=== PATIENT | female | born 1955 | race Caucasian/White ===

== ENCOUNTER 2017-11-30 05:47 | Inpatient (IN) | payer OTHER, SELFPAY ==
[2017-11-18 10:41] VITALS: BMI 33.7
[2017-11-30] VITALS (17 sets, daily range): BP systolic 96–138; BP diastolic 58–77; PULSE 73–92; RESP 13–20; TEMP 36.3–36.8; O2SAT 96–100; BMI 33.7
[2017-11-30] MEDS: ACETAMINOPHEN 325 MG TABLET 975 MG PO ×2 (07:12→21:45)
[2017-11-30] MEDS: CELECOXIB 200 MG CAPSULE PO (07:13)
[2017-11-30] MEDS: LACTATED RINGERS 1,000 ML 42 ML IV ×2 (07:15→10:27)
[2017-11-30] MEDS: VANCOMYCIN 1,000 MG/200 ML FROZ.PIGGY 200 MG IV ×2 (07:20→18:21)
--- NOTE | 2017-11-30 07:35 | SUR.PREOP ---
Block start time [0745] . Monitoring initiated and maintained throughout procedure. Oxygen and medications given per anesthesiologist instructions. Patient remained stable throughout procedure, no adverse reactions noted. Block end time [].0756
--- NOTE | 2017-11-30 07:41 | PM.PREOP ---
Pre-operative Note Interval Note Pre-op Check: Yes History & Physical Reviewed by Physician and Yes Exam Performed Changes: No
--- NOTE | 2017-11-30 08:32 | SUR.OPER ---
Supine on padded OR bed. Pillow under head, arms secured on padded armboards <90 degree abduction. Safety belt across torso. Non-operative leg secured with tape over blanket over lower leg. Operative leg secured in DeMayo/Edward positioner. Foam padded brace at thigh of operative leg.
[2017-11-30] MEDS: BUPIVACAINE 0.25% W/ EPI VIAL 50 ML INJ (08:50)
[2017-11-30] MEDS: BUPIVACAINE LIPOSOME 266 MG/20 ML VIAL INJ (08:50)
[2017-11-30] MEDS: TRANEXAMIC ACID 1,000 MG VIAL 1000 MG INJ ×2 (08:54→09:44)
--- NOTE | 2017-11-30 09:35 | PM.PROC.1 ---
Procedures Date/Time Date of procedure: 11/30/17 Time of procedure: 07:50 Nerve Block Time out performed: Yes Local anesthetic used: other (15mL 0.5pivacaine, 5mL 2 idocaine) Location of anesthetic used: Adductor canal Amount of anesthesia used (mL): 20 Nerve blocks: femoral (adductor canal) Procedure successful: Yes Patient tolerated procedure: well Complications: none Additional comments: Risks and benefits discussed, including bleeding, infection, intravascular injection, nerve damage, block failure. Standard ASA monitors, NC O2. Pt supine. Chloroprep site preparation, sterile technique. Adductor canal identified with US guidance, medial mid LEFT thigh. 1mL 2% lidocaine skin wheal. 21g x 100mm Pajunk advanced with in-plane US guidance to adductor canal. Negative aspiration. LA injected with intermittent negative aspiration. Good LA spread noted on US. No pain, no paraesthesia. Pt tolerated procedure well. Vital signs stable.
--- NOTE | 2017-11-30 09:38 | P.PCN_ITS ---
Procedures Date/Time Date of procedure: 11/30/17 Time of procedure: 07:50 Nerve Block Time out performed: Yes Local anesthetic used: other (15mL 0.5 opivacaine, 5mL 2* idocaine) Location of anesthetic used: Adductor canal Amount of anesthesia used (mL): 20 Nerve blocks: femoral (adductor canal) Procedure successful: Yes Patient tolerated procedure: well Complications: none Additional comments: Risks and benefits discussed, including bleeding, infection , intravascular injection, nerve damage, block failure. Standard ASA monitors, NC O2. Pt supine. Chloroprep site preparation, sterile technique. Adductor canal identified with US guidance, medial mid LEFT thigh. 1mL 2% lidocaine skin wheal. 21g x 100mm Pajunk advanced with in-plane US guidance to adductor canal. Negative aspiration. LA injected with intermittent negative aspiration. Good LA spread noted on US. No pain, no paraesthesia. Pt tolerated procedure well. Vital signs stable.
--- NOTE | 2017-11-30 10:15 | DI.RAD.S_ITS ---
PROCEDURE: XR KNEE LT 1TO2V INDICATIONS: post op total left knee TECHNIQUE: 2 view(s) of the knee acquired. COMPARISON: [facility] [place], [place], XR KNEE ARTHRITIC SERIES BI, 11/04/2017, 9:36. FINDINGS: Bones: Patient is status post knee joint arthroplasty. Hardware components are in expected positions. Visualized bony structures are intact. Soft tissues: Overlying postoperative changes are noted. IMPRESSION: Acute postoperative changes revision left total knee arthroplasty Dictated by: Robin Hooks M.D. on 11/30/2017 at 10:50 Approved by: Robin Hooks M.D. on 11/30/2017 at 10:51
--- NOTE | 2017-11-30 10:16 | P.OP_ITS ---
Operative Date/Time/Diagnoses Date of procedure: 11/30/17 Time of procedure: 09:50 Pre-op diagnosis: Loose femoral component, left total knee Post-op diagnosis: same Procedure & Clinicians Procedure: Revision of femoral component, left total knee Same procedure as scheduled: Yes Indications: The patient has had progressively worsening left knee pain with radiographic changes consistent with loosening of the femoral and possibly the patellar component of her total knee. Infection work up has been negative. Non- operative management has failed and the patient has requested total knee replacement. The risks, benefits and alternatives to surgery were discussed with the patient prior to proceeding. Risks discussed included, but were not limited to, failure to relieve pain, stiffness, infection, nerve damage, deep venous thrombosis, pulmonary embolism, stroke, coma, heart attack, permanent paralysis and , as well as the potential need for eventual revision of the prosthetic. Surgeon: Vipul Bullock Computer Systems Architect: Cecilia Jha Click Yes if Unassisted: No Anesthesia Type: General, Spinal, Peripheral nerve block and Local Operative Notes Findings: Loose femoral and well-fixed patellar and tibial components. Closure Type: primary Specimen(s): other (Cultures from femoral interface.) Implants & Drains: Implants used in this procedure were manufactured by the [employer] and included a PFC Sigma revision total knee system with a size 2.5 left TC3 cemented femoral component, 2.5 mm distal augments for both the medial and lateral femoral condyles, a +2/-2 femoral adapter bolt, a 75 mm x 18 mm stem, and a 17.5 mm size 2.5 TC3 rotating platform tibial insert. A size 3 posterior stabilized Sigma femoral component was removed. Applied: implant(s) Estimated Blood Loss (mL): 50 Blood products transfused: none Tourniquet time (min): 67 Procedure in detail: The patient was seen in the pre-operative area, where the left knee was identified as the operative site and this was marked with my initials. The patient received pre-operative antibiotics, and was taken to the operating room and placed on the operative table in the supine position. After satisfactory anesthesia, a full stack software developer out was performed. The left leg was encircled with a tourniquet about the proximal thigh, and the leg was prepared from the toes to the tourniquet with ChloroPrep in the usual fashion and draped through sterile drapes. The leg was elevated and exsanguinated with Eschmark bandage and the tourniquet inflated to 250 mmHg pressure. The knee was approached through an approximately 20 cm incision in the previous scar and carried into the knee through a medial parapatellar arthrotomy. The tibial rotating platform insert was removed to allow more access to the femoral component. Revision cement removal osteotomes were used to break down the interface between the prosthetic and the underlying bone. The prosthetic was relatively easily removed with minimal residual bone on the prosthetic. Cultures were taken and the membrane from behind the prosthetic sent as well for culture. The rotational landmarks of the transepicondylar axis was marked on the femur with electrocautery, and it appeared as though the previous prosthetic had been appropriately rotated. The intramedullary canal was entered with a drill and then reamed increasingly until cortical bite was obtained with an 18 mm reamer. The distal femoral cut was made in 5 degrees of valgus using the intramedullary guide at the +4 setting, which accomplished a skim cut on the femur. The femoral cutting guide was then applied in appropriate rotation. Initially we tried the size 3, this however was significantly oversized and upon review of the radiographs appeared to have been oversized even with the initial procedure. We then downsized to a 2.5 mm guide and moved it 2 mm posteriorly. This accomplished both a skim cut on the anterior and posterior femur without the need for augmentation. In part I did this to improve the patient's flexion, this has been limited preoperatively. The anterior, posterior and chamfer cuts were then made. The intercondylar notch cut was enlarged to accommodate the TC3 prosthesis. The flexion gap was checked and the rotation of the femoral component confirmed with the gap balancing blocks before completing the femoral cuts. The trial femur was then assembled with the 4 mm distal augments and the appropriate 75 mm x 18 mm stem. This was inserted and with a 17.5 mm TC3 rotating platform insert we had full extension and flexion to 110? (improved from 90? preoperatively). This was felt to be satisfactory. The trials were then removed. The posterior capsule was injected with part of a mixture of 50 ml 0.25% Marcaine mixed with 20 ml Exparel and 4 mg of morphine for post-operative pain control. The remainder of this mixture was injected into the capsule and subcutaneous tissues during cement curing. I then inspected the patella very carefully and it did not appear to be loose from the underlying bone. The bone was prepared with pulsatile lavage, and dried with a sponge. Cement was applied and the final prosthetics placed. Excess cement was removed during and after cement curing. After confirming there was no extruded cement posteriorly, the final tibial insert was placed. The knee was copiously irrigated and the tourniquet deflated. Hemostasis was obtained. The capsule was closed with interrupted # 2 polyester sutures. The subcutaneous layer was closed with 3-0 Vicryl, and the skin with a running 3-0 V-Lock suture and SteriStrips. An Aquacel Ag dressing was applied and the patient was taken to recovery having tolerated the procedure well. Complications: none Condition: stable Disposition: PACU Plan for aftercare: The patient will be maintained on a standard total knee replacement protocol with weight bearing as tolerated. The patient will receive aspirin and sequential compression devices for DVT prophylaxis. The patient will be discharged home when safe for the home environment.
[2017-11-30] MEDS: fentaNYL 100 MCG/2 ML INJ 50 MCG IV ×2 (10:20→10:30)
--- NOTE | 2017-11-30 10:30 | SUR.PHASEI ---
pt medicated for c/o pain in left knee, pt able to wiggle toes freely, 2+ palpable pedal pulse on left, x rays taken, pt tolerating ice chips
--- NOTE | 2017-11-30 10:43 | SUR.PHASEI ---
REPORT GIVEN TO STEVO ALEX PT TOLERATING SIPS OF JUICE
--- NOTE | 2017-11-30 11:07 | PC.NURSE ---
Admission Pt arrived from PACU @ 1055, A/O x3, rates pain to L thigh/knee 8+/10 discussed recent dosing of PACU pain control. Pt verbalizes understanding of POC for pain control. Oriented to room and call light. Snack provided. in room, Pt is able to doze off during assessment. SCDs in place.
[2017-11-30] MEDS: LACTATED RINGERS 1,000 ML 100 ML IV (11:34)
[2017-11-30] MEDS: hydrOXYzine pamoate 25 MG CAPSULE PO ×2 (11:43→18:26)
[2017-11-30] MEDS: OXYCODONE IR 5 MG TABLET 10 MG PO ×4 (11:44→21:47)
[2017-11-30] MEDS: MEPERIDINE 25 MG/ML SYRINGE IV (12:42)
--- NOTE | 2017-11-30 15:40 | PT.IIE ---
Current Diagnoses Bilateral primary osteoarthritis of knee (11/30/17) Surgery Performed Operation Date: 11/30/17 07:45 Actual Procedures p Total Knee Arthroplasty Revision(Left) - Vipul Bullock MD Surgical History (Last Updated 11/18/17 @ 11:00 by Brittanie Montano, RN) History of arthroplasty of left knee (Acute) History of cholecystectomy (Acute) History of gastric bypass (Acute) History of total abdominal hysterectomy and bilateral salpingo-oophorectomy (Acute) Hx of appendectomy (Acute) Hx of section (Acute) Medical History (Last Updated 11/20/17 @ 12:22 by Brittanie Montano RN) ADHD (Acute) Anxiety (Acute) Bipolar 1 disorder (Acute) Chronic gastritis (Acute) Depression (Acute) Easy bruisability (Acute) GERD (gastroesophageal reflux disease) (Acute) Generalized headaches (Acute) Left wrist fracture (Acute) Neck pain (Acute) Neurology follow-up encounter (Acute) PTSD (post-traumatic stress disorder) (Acute) Peripheral edema (Acute) Rhinosinusitis (Acute) Seasonal allergies (Acute) Seizure-like activity (Acute) Skin cancer (Acute) Physical Therapy Inpatient Evaluation/Re-Eval M1 PT/OT-IP Prior Functional Status Start: 11/30/17 14:26 Freq: NEEDED Status: Active Protocol: Document 11/30/17 15:40 RS (Rec: 12/01/17 07:54 RS [id number]) Medical Review Prior Functional Status Medical History Reviewed Yes Communication no known deficits Mobility and Gait ind to mod ind w/ walker Social History Household Members spouse children Living Arrangements House Number of Floors (Floors) One Floor Number of Stairs To Enter/Railing? no stairs, w/c ramp in place Home Equipment Front Wheel Walker Additional Social History Comment pt's granddaughter and disabled dtr are currently living with them. M2 PT-IP Current Condition Start: 11/30/17 14:26 Freq: NEEDED Status: Active Protocol: Document 11/30/17 15:40 RS (Rec: 12/01/17 07:54 RS [id number]) Physical Therapy Current Condition Current Condition Evaluation Date 11/30/17 Treatment Diagnosis L TKA 2nd revision Weight Bearing Status Weight Bearing Status Weight Bear as Tolerated M3 PT-IP Subjective Start: 11/30/17 14:26 Freq: NEEDED Status: Active Protocol: Document 11/30/17 15:40 RS (Rec: 12/01/17 07:54 RS [id number]) Subjective Physical Therapy Visit Type Type Initial Evaluation Visit Start Time 14:40 Visit Stop Time 15:40 Total Visit Minutes 60 Physical Therapy Visit Comments Patient Comments Pt reports more pain this time than the previous two surgeries. This is her 2nd revision. Short Term Goals go home Therapy Pain Assessment Pain When Pain Assessed During Mobility Pain Present Pain Present Pain Reported Location Left Knee Intensity 9 Scale Used Numeric (1 - 10) Description Sharp Stabbing Throbbing With Movement Pain Behaviors Facial Grimacing Guarding Pain Management Techniques Apply Cold Distraction Modification of Treatment Re-positioning Timing of Activity with Medications M4 PT-IP Mobility and Gait Start: 11/30/17 14:26 Freq: NEEDED Status: Active Protocol: Document 11/30/17 15:40 RS (Rec: 12/01/17 07:54 RS [id number]) PT-Bed Mobility Assessment Rolling Level of Assist Minimal Assistance Supine to Sit Supine to Sit Minimal Assistance Sit to Supine Sit to Supine Minimal Assistance Scooting Scooting to Edge of Bed Contact Guard Assistance PT-Transfer Assessment Sit to and From Stand Sit to and from Stand Contact Guard Assistance Equipment Transfer Assistive Device Gait Belt Front Wheeled Walker Comments Mobility Comments Pt was not able to tolerate getting up to the chair as she got dizzy after standing a few moments at EOB. Pt was able to perform marching before needing to sit down and was very stable. Once pt is not dizzy she will be safe to perform stand-pivot transfer with nursing staff w/ FWW, gait belt, and CGA. Gait Assessment Comments Gait Comments Pt was able to take a few side steps but typical walking has not been trialled yet as pt became dizzy in standing. PT-Balance Assessment Sitting Balance and Reactions Static Sitting Balance Ability Normal Dynamic Sitting Balance Ability Good Standing Balance and Reactions Static Standing Balance Ability Good Dynamic Standing Balance Ability Fair Device Used FWW M5 PT-IP Objective Assessments Start: 11/30/17 14:26 Freq: NEEDED Status: Active Protocol: Document 11/30/17 15:40 RS (Rec: 12/01/17 07:54 RS [id number]) Orientation Orientation/Cognition Level of Alertness Alert Orientation Name Age Birthday Month Date Year Day of Week Place Situation Language Function Ability No Deficits Noted Safety Awareness Understands Safety Issues Memory Description No Deficits Noted Gross Range of Motion Upper Extremity ROM Assessment Within Functional Limits Lower Extremity ROM Impairments BLE WFL except L knee 10-50 Strength Upper Extremity Strength Assessment Within Functional Limits Comments Strength Comments not formally tested, pt able to stand with walker with only CGA M6 PT-IP Treatment Start: 11/30/17 14:26 Freq: NEEDED Status: Active Protocol: Document 11/30/17 15:40 RS (Rec: 12/01/17 07:54 RS [id number]) Physical Therapy Treatment Exercises Exercises Ankle Pumps Gluteal Sets Quad Sets Heel Slides Short Arc Quads Passive Knee Extension Hang Education Education Provided Precautions Weight Bearing Status Post-Op Packet Safety M7 PT-IP Assessment and Plan Start: 11/30/17 14:26 Freq: NEEDED Status: Active Protocol: Document 11/30/17 15:40 RS (Rec: 12/01/17 07:54 RS [id number]) PT Summary Assessment and Plan Potential Rehabilitation Potential Good Status of Condition at Evaluation Stable Summary Impairments Pain ROM Strength Bed Mobility Transfers Gait Activity Tolerance Progress Towards Goals Progressing Toward Goals Assessment Summary Pt is POD#0 for a 2nd L TKA revision. Pt describes high levels of pain but is able to tolerate basic mobility with CGA<>min A. Anticipate that with continued acute PT, general mobilization with nursing, and ongoing pain management that pt will be safe to discharge home with intermittent assist in 2-3 days. It is unlikely that formalized caregiver training will be needed. Patient is still well below reported functional baseline and has potential for functional improvement. Pt will benefit from ongoing skilled PT with home health. Goals Bed Mobility Goal Independent Transfer Goal Independent Front Wheeled Walker Gait Goal Independent Front Wheel Walker Gait Distance 50 Days to Meet Goals 3 Frequency of Treatment Frequency Of Treatment Twice a Day Treatment Plan Physical Therapy Treatment Plan Bed Mobility Training Transfer Training Gait Training Therapeutic Exercise Discharge Planning Other Recommendations and Next Treatment continue exercises and Focus progress to walking Recommendations To Nursing Amount of Assist Needed 1 Person Assist Discharge Recommendations PT Discharge Recommendations Home with Assistance Home Health
[2017-11-30] MEDS: AMITRIPTYLINE 25 MG TABLET 50 MG PO (21:44)
[2017-11-30] MEDS: DOCUSATE 100 MG CAPSULE PO (21:46)
[2017-11-30] MEDS: BUSPIRONE 15 MG TABLET 30 MG PO (21:46)
[2017-11-30] MEDS: MONTELUKAST 10 MG TABLET PO (21:47)
[2017-11-30] MEDS: LORazepam 0.5 MG TABLET 1 MG PO (21:47)
[2017-12-01] MEDS: LACTATED RINGERS 1,000 ML 100 ML IV (00:10)
--- NOTE | 2017-12-01 00:26 | PC.NURSE ---
Addendum entered by Muna Arroyo R.N. 12/01/17 03:56: Awakened as requested for pain medication. Although asleep when RN entered room patient states pain is currently 8/10. SCD's off for past hour and now back on. Original Note: Addendum entered by Muna Arroyo R.N. 12/01/17 02:38: States she woke from a sleep in 9/10 pain; medicated with Ibuprofen and instructed that if that doesn't reduce pain there is IV pain medication as well. Original Note: Addendum entered by Muna Arroyo R.N. 12/01/17 00:54: Medicated with Oxycodone + Vistaril for complaint of 7/10 pain as requested to be awakened for pain meds when available. Original Note: Patient is alert and oriented. Breath sounds CTA with RA sat of 95%. HRR. Denies nausea. BT hypoactive; denies flatus. Getting up to bathroom to void and denies dysuria, frequency, urgency or incontinence. Is able to turn self in bed but needs 1 assist + walker when up to bathroom. Aquacel with idris wrap over to left knee is CDI. Current pain level is 7/10 but states she can wait until next pain meds are due at 0045; ice packs applied. CMS intact. Does have chronic non-pitting bilateral LE edema. Old bruises noted on left upper arm and right wrist; states she bruises easily. Wearing bilateral SCD's. Fall risk score is high as patient reports she has had 3 falls in past 3 months because knees are shaky and give out; bed alarm is activated and patient is agreeable to same.
[2017-12-01] MEDS: OXYCODONE IR 5 MG TABLET 10 MG PO ×6 (00:49→19:52)
[2017-12-01] MEDS: hydrOXYzine pamoate 25 MG CAPSULE PO ×3 (00:49→16:20)
[2017-12-01] MEDS: IBUPROFEN 400 MG TABLET 800 MG PO (02:34)
[2017-12-01 04:08] VITALS: BP 116/61; PULSE 81; RESP 18; TEMP 36.7; O2SAT 95
[2017-12-01 06:19] LABS: Hematocrit 30.3 % (36-46); Hemoglobin 9.4 g/dL (12.0-16.0)
[2017-12-01 07:45] VITALS: BP 113/58; PULSE 91; RESP 18; TEMP 36.7; O2SAT 96
--- NOTE | 2017-12-01 07:45 | PM.PNPO.1 ---
Subjective Date Patient Seen: 12/01/17 Time Patient Seen: 07:45 Interval history: The patient reports good pain control overnight. She was briefly seen by PT yesterday, but did not get out of bed. Exam Vital Signs (past 8 hours): - 12/01/17 04:08 Temperature 98.1 F Pulse Rate 81 Respiratory Rate 18 Blood Pressure 116/61 Pulse Oximetry 95 Oxygen Delivery Method Room Air Oxygen Flow Rate 0 Narrative Exam Narrative: Left knee wound is dressed with no drainage on the bandage. Calf is soft. Light touch and motion are intact in the left lower extremity. Objective Labs Result Diagrams: 12/01/17 05:30 Labs: Laboratory Results - last 24 hr 12/01/17 05:30 Hgb 9.4 L Hct 30.3 L Assessment & Plan Post-op Postoperative Procedures Operation Date: 11/30/17 07:45 Actual Procedures Side Surgeon p Total Knee Arthroplasty Revision Left Vipul Bullock MD Postoperative day: 1 Postoperative status: doing well and anemia (The patient had a mild preoperative anemia which is slightly worse postoperatively. Her hemoglobin and hematocrit do not require rechecking as they are satisfactory.) Postoperative plan: routine post-op care, ambulate (The patient will be seen by physical therapy today. Depending on the progress she will be discharged home with either outpatient or home physical therapy.) and discharge (Discharge as possible tomorrow if she makes enough progress with physical therapy. If not, I would anticipate she will be discharged on .) Time Spent With Patient less than 15 minutes Quality VTE Deep Vein Thrombosis/Pulmonary Embolism Present on Admission: No
[2017-12-01] MEDS: ASPIRIN EC 81 MG TABLET PO ×2 (08:05→20:00)
[2017-12-01] MEDS: lamoTRIgine 100 MG TABLET 200 MG PO (08:05)
[2017-12-01] MEDS: BUSPIRONE 15 MG TABLET 30 MG PO ×2 (08:05→20:00)
[2017-12-01] MEDS: ACETAMINOPHEN 325 MG TABLET 975 MG PO ×3 (08:05→20:00)
[2017-12-01] MEDS: DOCUSATE 100 MG CAPSULE PO ×2 (08:06→20:00)
[2017-12-01] MEDS: lamoTRIgine 25 MG CHEW TABLET 75 MG PO (08:06)
[2017-12-01] MEDS: ESTRADIOL 0.5 MG TABLET PO (08:06)
[2017-12-01] MEDS: ONDANSETRON 4 MG ODT PO (08:51)
--- NOTE | 2017-12-01 10:04 | CM.DANOTE ---
DCP/Assessment: Reviewed chart. Patient is a 62yr old female [facility] knee revision performed on 11-30-[address] Bullock. Primary payor is 1)[facility]. PCP is Dr. Freeman. Met with patient and spouse/Jakob at bedside explained CM/SW role. PT in room at time of visit. Current recommendation is home with home health for PT/OT. Patient reports that she is agreeable to and first agency choice is [facility] . Patient and spouse report that patient has all needed DME at home. Patient also reports that [facility] already coming to patient's home for patient's daughter. UNIT SECY placed call to [facility] spoke with Penelope. She confirms that they can accept referral and would like clinical faxed to [phone]. UNIT SECY will request TONEY/Radha fax. P: Anticipate d/c home on Thursday12-01-17 with [facility] . PILLO Gilliam Discharge Planning/Care Management CM Discharge Assessment Start: 12/01/17 09:43 Freq: Status: Active Protocol: Document 12/01/17 09:43 KJS (Rec: 12/01/17 10:03 KJS [id number]) Discharge Planning Assessment Assigned Floriculture Teacher PILLO/Monserrat History Provided By Patient Significant Other Has Patient been admitted in last 30 No days? Prior Living Arrangements House Household Members spouse children Type of transporation used prior to Relies on Others admit Independent with ADL's Yes Is patient alert and oriented? Yes Caregiver for Another No DME Already Rented / Owned Hospital Bed Elevated Toilet Seat FWW / Walker Discharge Plan Home with Home Health If patient plan is home with home health Yes : Has signed face to face form been completed? Review Status In Process Next Review Type Continued Stay Review
--- NOTE | 2017-12-01 10:13 | PT.IPTN ---
Current Diagnoses Bilateral primary osteoarthritis of knee (11/30/17) Surgery Performed Operation Date: 11/30/17 07:45 Actual Procedures p Total Knee Arthroplasty Revision(Left) - Vipul Bullock MD Physical Therapy Treatment Note M2 PT-IP Current Condition Start: 11/30/17 14:26 Freq: NEEDED Status: Active Protocol: Document 11/30/17 15:40 RS (Rec: 12/01/17 07:54 RS [id number]) Physical Therapy Current Condition Current Condition Evaluation Date 11/30/17 Treatment Diagnosis L TKA 2nd revision Weight Bearing Status Weight Bearing Status Weight Bear as Tolerated M3 PT-IP Subjective Start: 11/30/17 14:26 Freq: NEEDED Status: Active Protocol: Document 12/01/17 09:52 RS (Rec: 12/01/17 10:13 RS [email or web address]) Subjective Physical Therapy Visit Type Type Treatment Note Visit Start Time 09:04 Visit Stop Time 09:30 Total Visit Minutes 26 Physical Therapy Visit Comments Patient Comments Pt reports sleeping well, feels like she'll be ready to go home tomorrow. Therapy Pain Assessment Pain When Pain Assessed During Mobility Pain Present Pain Present Pain Reported Location Left Knee Intensity 4 M4 PT-IP Mobility and Gait Start: 11/30/17 14:26 Freq: NEEDED Status: Active Protocol: Document 12/01/17 09:52 RS (Rec: 12/01/17 10:13 RS [email or web address]) PT-Bed Mobility Assessment Supine to Sit Supine to Sit Standby Assistance Head of Bed Elevated Bedrails Sit to Supine Sit to Supine Standby Assistance Head of Bed Elevated Bedrails Scooting Scooting to Edge of Bed Standby Assistance PT-Transfer Assessment Sit to and From Stand Sit to and from Stand Standby Assistance Use of Upper Extremities Equipment Transfer Assistive Device Gait Belt Front Wheeled Walker Transfers Transfer Destination Chair Transfer Technique Stand Step Pivot Transfer Ability Level of Assist Standby Assistance Use of Upper Extremities Comments Mobility Comments Pt without any dizziness today , able to complete all transfers and bed mobility with only SBA. Pt used a gait belt as a leg computer education professor for bed mobility and it worked really well. Pt needed help to place the belt around her foot, so we need to experiment with how to create a leg computer education professor that doesn't require additional assist to get it placed. Gait Assessment Gait Gait Assistance Required: Standby Assistance Distance (Feet) (feet) 50 Assistive Devices Assistive Device Gait Belt Front Wheeled Walker Gait Deviations General Gait Pattern Antalgic Decreased Stride Length Decreased Feet Clearance Flexed Trunk Step-to Gait Factors Limiting Gait Function Factors Limiting Gait Function Decreased Activity Tolerance Decreased Strength Limited Range of Motion Pain Comments Gait Comments Pt with significant limp when trying to take a step with the RLE, did better when cued to perform a glute squeeze when in LLE single leg stance. Pt cued for longer R step to make stepping pattern more symmetrical, this improved t/o the session but pt still with a short R step. PT-Balance Assessment Sitting Balance and Reactions Static Sitting Balance Ability Normal Dynamic Sitting Balance Ability Good Standing Balance and Reactions Static Standing Balance Ability Good Dynamic Standing Balance Ability Fair Device Used FWW M5 PT-IP Objective Assessments Start: 11/30/17 14:26 Freq: NEEDED Status: Active Protocol: Document 11/30/17 15:40 RS (Rec: 12/01/17 07:54 RS [id number]) Orientation Orientation/Cognition Level of Alertness Alert Orientation Name Age Birthday Month Date Year Day of Week Place Situation Language Function Ability No Deficits Noted Safety Awareness Understands Safety Issues Memory Description No Deficits Noted Gross Range of Motion Upper Extremity ROM Assessment Within Functional Limits Lower Extremity ROM Impairments BLE WFL except L knee 10-50 Strength Upper Extremity Strength Assessment Within Functional Limits Comments Strength Comments not formally tested, pt able to stand with walker with only CGA M6 PT-IP Treatment Start: 11/30/17 14:26 Freq: NEEDED Status: Active Protocol: Document 11/30/17 15:40 RS (Rec: 12/01/17 07:54 RS [id number]) Physical Therapy Treatment Exercises Exercises Ankle Pumps Gluteal Sets Quad Sets Heel Slides Short Arc Quads Passive Knee Extension Hang Education Education Provided Precautions Weight Bearing Status Post-Op Packet Safety M7 PT-IP Assessment and Plan Start: 11/30/17 14:26 Freq: NEEDED Status: Active Protocol: Document 12/01/17 09:52 RS (Rec: 12/01/17 10:13 RS [email or web address]) PT Summary Assessment and Plan Potential Rehabilitation Potential Good Status of Condition at Evaluation Stable Summary Impairments Pain ROM Strength Bed Mobility Transfers Gait Activity Tolerance Progress Towards Goals Progressing Toward Goals Assessment Summary Pt is POD#1 L TKA revision. Pt is making slow and steady progress, now able to mobilize mostly with SBA. Pt is still below reported functional baseline and still has potential for further functional improvement. Anticipate that with continued acute PT, general mobilization with nursing, and ongoing pain management that pt will be safe to discharge home with intermittent assist tomorrow. It is unlikely that formalized caregiver training will be needed. Pt will benefit from ongoing skilled PT with home health. Pt will need HHPT as pt won't be able to perform community mobility yet. Goals Bed Mobility Goal Independent Transfer Goal Independent Front Wheeled Walker Gait Goal Independent Front Wheel Walker Gait Distance 50 Days to Meet Goals 2 Frequency of Treatment Frequency Of Treatment Twice a Day Treatment Plan Physical Therapy Treatment Plan Bed Mobility Training Transfer Training Gait Training Therapeutic Exercise Discharge Planning Other Recommendations and Next Treatment continue exercises and Focus progress to walking Recommendations To Nursing Amount of Assist Needed 1 Person Assist Discharge Recommendations PT Discharge Recommendations Home with Assistance Home Health
[2017-12-01] MEDS: DEXTROAMPHETAMINE AMPHETAMINE 10 MG 20 EACH PO (11:27)
[2017-12-01 15:10] VITALS: BP 122/63; PULSE 82; RESP 17; TEMP 36.9; O2SAT 97
[2017-12-01] MEDS: DEXTROAMPHETAMINE AMPHETAMINE 10 EACH PO (16:20)
[2017-12-01] MEDS: MONTELUKAST 10 MG TABLET PO (20:00)
[2017-12-01] MEDS: AMITRIPTYLINE 25 MG TABLET 50 MG PO (20:00)
[2017-12-01] MEDS: LORazepam 0.5 MG TABLET 1 MG PO (20:00)
[2017-12-01 23:40] VITALS: BP 100/79; PULSE 97; RESP 16; TEMP 37.1; O2SAT 93
[2017-12-02] MEDS: hydrOXYzine pamoate 25 MG CAPSULE PO ×3 (00:33→20:36)
[2017-12-02] MEDS: OXYCODONE IR 5 MG TABLET 10 MG PO ×3 (00:34→06:53)
[2017-12-02 07:45] VITALS: BP 128/73; PULSE 99; RESP 20; TEMP 36.9; O2SAT 97
[2017-12-02] MEDS: ESTRADIOL 0.5 MG TABLET PO (08:33)
[2017-12-02] MEDS: DOCUSATE 100 MG CAPSULE PO ×2 (08:33→20:32)
[2017-12-02] MEDS: ASPIRIN EC 81 MG TABLET PO ×2 (08:34→20:34)
[2017-12-02] MEDS: lamoTRIgine 100 MG TABLET 200 MG PO (08:34)
[2017-12-02] MEDS: lamoTRIgine 25 MG CHEW TABLET 75 MG PO (08:34)
[2017-12-02] MEDS: ACETAMINOPHEN 325 MG TABLET 975 MG PO ×2 (08:34→16:38)
[2017-12-02] MEDS: BUSPIRONE 15 MG TABLET 30 MG PO ×2 (08:34→20:34)
[2017-12-02] MEDS: POLYETHYLENE GLYCOL 3350 17 GM POWD.PACK PO (08:35)
[2017-12-02] MEDS: OXYCODONE IR 5 MG TABLET 15 MG PO ×4 (10:05→20:43)
--- NOTE | 2017-12-02 11:40 | PT.IPTN ---
Current Diagnoses Bilateral primary osteoarthritis of knee (11/30/17) Surgery Performed Operation Date: 11/30/17 07:45 Actual Procedures p Total Knee Arthroplasty Revision(Left) - Vipul Bullock MD Physical Therapy Treatment Note M2 PT-IP Current Condition Start: 11/30/17 14:26 Freq: NEEDED Status: Active Protocol: Document 11/30/17 15:40 RS (Rec: 12/01/17 07:54 RS [id number]) Physical Therapy Current Condition Current Condition Evaluation Date 11/30/17 Treatment Diagnosis L TKA 2nd revision Weight Bearing Status Weight Bearing Status Weight Bear as Tolerated M3 PT-IP Subjective Start: 11/30/17 14:26 Freq: NEEDED Status: Active Protocol: Document 12/02/17 11:40 GGD (Rec: 12/02/17 12:07 GGD [email or web address]) Subjective Physical Therapy Visit Type Type Treatment Note Visit Start Time 11:00 Visit Stop Time 11:40 Total Visit Minutes 40 Number of MEAT SPECIALIST Visits 1 Physical Therapy Visit Comments Patient Comments Pt state she had lot of pain and is nauseous. Therapy Pain Assessment Pain When Pain Assessed During Mobility Pain Present Pain Present Pain Reported Location Left Knee Intensity 7 M4 PT-IP Mobility and Gait Start: 11/30/17 14:26 Freq: NEEDED Status: Active Protocol: Document 12/02/17 11:40 GGD (Rec: 12/02/17 12:07 GGD [email or web address]) PT-Bed Mobility Assessment Supine to Sit Supine to Sit Contact Guard Assistance Head of Bed Elevated Bedrails Scooting Scooting to Edge of Bed Standby Assistance PT-Transfer Assessment Sit to and From Stand Sit to and from Stand Contact Guard Assistance Use of Upper Extremities Equipment Transfer Assistive Device Gait Belt Front Wheeled Walker Transfers Transfer Destination Chair Comments Mobility Comments Used leg mine administrator supervisor for bed mobility. Gait Assessment Gait Gait Assistance Required: Contact Guard Assist Distance (Feet) (feet) 50 Assistive Devices Assistive Device Gait Belt Front Wheeled Walker Gait Deviations General Gait Pattern Antalgic Decreased Stride Length Decreased Feet Clearance Flexed Trunk Step-to Gait Factors Limiting Gait Function Factors Limiting Gait Function Decreased Activity Tolerance Decreased Strength Limited Range of Motion Pain M5 PT-IP Objective Assessments Start: 11/30/17 14:26 Freq: NEEDED Status: Active Protocol: Document 11/30/17 15:40 RS (Rec: 07/24/18 07:54 RS [id number]) Orientation Orientation/Cognition Level of Alertness Alert Orientation Name Age Birthday Month Date Year Day of Week Place Situation Language Function Ability No Deficits Noted Safety Awareness Understands Safety Issues Memory Description No Deficits Noted Gross Range of Motion Upper Extremity ROM Assessment Within Functional Limits Lower Extremity ROM Impairments BLE WFL except L knee 10-50 Strength Upper Extremity Strength Assessment Within Functional Limits Comments Strength Comments not formally tested, pt able to stand with walker with only CGA M6 PT-IP Treatment Start: 11/30/17 14:26 Freq: NEEDED Status: Active Protocol: Document 12/02/17 11:40 GGD (Rec: 12/02/17 12:07 GGD [email or web address]) Physical Therapy Treatment Exercises Exercises Ankle Pumps Gluteal Sets Quad Sets Heel Slides Short Arc Quads M7 PT-IP Assessment and Plan Start: 11/30/17 14:26 Freq: NEEDED Status: Active Protocol: Document 12/02/17 11:40 GGD (Rec: 12/02/17 12:07 GGD [email or web address]) PT Summary Assessment and Plan Summary Assessment Summary Pt had increase in pain with mobility. She had a slow step to gait pattern. She did better with bed moblity with use of leg mine administrator supervisor. Frequency of Treatment Frequency Of Treatment Twice a Day Treatment Plan Physical Therapy Treatment Plan Bed Mobility Training Transfer Training Gait Training Therapeutic Exercise Discharge Planning Other Recommendations and Next Treatment continue exercises and Focus progress to walking Recommendations To Nursing Amount of Assist Needed 1 Person Assist Discharge Recommendations PT Discharge Recommendations Home with Assistance Home Health
--- NOTE | 2017-12-02 11:45 | PM.PNPO.1 ---
Subjective Date Patient Seen: 12/02/17 Interval history: Patient is seen bedside status post left revision knee replacement. Patient is postop day 2. She was up with therapy and working well yesterday however her blockers were held today her pain is increased. She is anxious about pain. She would like to stay another day. Exam Vital Signs (past 8 hours): - 12/02/17 07:45 Temperature 98.4 F Pulse Rate 99 H Respiratory Rate 20 Blood Pressure 128/73 H Pulse Oximetry 97 Oxygen Delivery Method Room Air Oxygen Flow Rate 0 Narrative Exam Narrative: Patient is well-developed well-nourished in no acute distress. Patient alert oriented x3. Patient has full range of motion of the left ankle as well as 2+ pulses. Aquacel dressing is clean dry and intact. Minimal drainage noted. Calf is soft and compressible. Objective Labs Result Diagrams: 12/01/17 05:30 Assessment & Plan Post-op (1) Failed total left knee replacement: Current Visit: Yes Status: Acute Postoperative Procedures Operation Date: 11/30/17 07:45 Actual Procedures Side Surgeon p Total Knee Arthroplasty Revision Left Vipul Bullock MD patient is doing well status post left total knee revision. Continue physical therapy and order occupational therapy today. Increase oxycodone to 15 mg q.3h to help with pain. Plan to discharge home tomorrow with outpatient PT. Time Spent With Patient less than 15 minutes Quality VTE Deep Vein Thrombosis/Pulmonary Embolism Present on Admission: No
[2017-12-02] MEDS: DEXTROAMPHETAMINE AMPHETAMINE 10 MG 20 EACH PO (13:40)
--- NOTE | 2017-12-02 14:50 | PT.IPTN ---
Current Diagnoses Bilateral primary osteoarthritis of knee (11/30/17) Surgery Performed Operation Date: 11/30/17 07:45 Actual Procedures p Total Knee Arthroplasty Revision(Left) - Vipul Bullock MD Physical Therapy Treatment Note M2 PT-IP Current Condition Start: 11/30/17 14:26 Freq: NEEDED Status: Active Protocol: Document 11/30/17 15:40 RS (Rec: 12/01/17 07:54 RS [id number]) Physical Therapy Current Condition Current Condition Evaluation Date 11/30/17 Treatment Diagnosis L TKA 2nd revision Weight Bearing Status Weight Bearing Status Weight Bear as Tolerated M3 PT-IP Subjective Start: 11/30/17 14:26 Freq: NEEDED Status: Active Protocol: Document 12/02/17 14:50 GGD (Rec: 12/02/17 15:22 GGD [email or web address]) Subjective Physical Therapy Visit Type Type Treatment Note Visit Start Time 14:00 Visit Stop Time 14:50 Total Visit Minutes 50 Number of DISCOVERY MANAGER Visits 2 Physical Therapy Visit Comments Patient Comments Pt states she is ready to go back to bed. Therapy Pain Assessment Pain When Pain Assessed During Mobility Pain Present Pain Present Pain Reported Location Left Knee Intensity 6 M4 PT-IP Mobility and Gait Start: 11/30/17 14:26 Freq: NEEDED Status: Active Protocol: Document 12/02/17 14:50 GGD (Rec: 12/02/17 15:22 GGD [email or web address]) PT-Bed Mobility Assessment Sit to Supine Sit to Supine Standby Assistance Head of Bed Elevated Bedrails Scooting Scooting to Edge of Bed Standby Assistance PT-Transfer Assessment Sit to and From Stand Sit to and from Stand Contact Guard Assistance Use of Upper Extremities Equipment Transfer Assistive Device Gait Belt Front Wheeled Walker Transfers Transfer Destination Bed Comments Mobility Comments Used leg line tender for bed mobility. Gait Assessment Gait Gait Assistance Required: Contact Guard Assist Distance (Feet) (feet) 35 Assistive Devices Assistive Device Gait Belt Front Wheeled Walker Gait Deviations General Gait Pattern Antalgic Decreased Stride Length Decreased Feet Clearance Flexed Trunk Step-to Gait Factors Limiting Gait Function Factors Limiting Gait Function Decreased Activity Tolerance Decreased Strength Limited Range of Motion Pain M5 PT-IP Objective Assessments Start: 11/30/17 14:26 Freq: NEEDED Status: Active Protocol: Document 11/30/17 15:40 RS (Rec: 12/01/17 07:54 RS [id number]) Orientation Orientation/Cognition Level of Alertness Alert Orientation Name Age Birthday Month Date Year Day of Week Place Situation Language Function Ability No Deficits Noted Safety Awareness Understands Safety Issues Memory Description No Deficits Noted Gross Range of Motion Upper Extremity ROM Assessment Within Functional Limits Lower Extremity ROM Impairments BLE WFL except L knee 10-50 Strength Upper Extremity Strength Assessment Within Functional Limits Comments Strength Comments not formally tested, pt able to stand with walker with only CGA M6 PT-IP Treatment Start: 11/30/17 14:26 Freq: NEEDED Status: Active Protocol: Document 12/02/17 14:50 GGD (Rec: 12/02/17 15:22 GGD [email or web address]) Physical Therapy Treatment Exercises Exercises Ankle Pumps Gluteal Sets Quad Sets Heel Slides Short Arc Quads Seated Knee Flexion/Extension M7 PT-IP Assessment and Plan Start: 11/30/17 14:26 Freq: NEEDED Status: Active Protocol: Document 12/02/17 14:50 GGD (Rec: 12/02/17 15:22 GGD [email or web address]) PT Summary Assessment and Plan Summary Assessment Summary Pt had improved pain control with gait. She need SBA to CGA with all mobility and use of leg line tender. She was very slow moving with mobility. She need cues for mobility and pain control. Frequency of Treatment Frequency Of Treatment Twice a Day Treatment Plan Physical Therapy Treatment Plan Bed Mobility Training Transfer Training Gait Training Therapeutic Exercise Discharge Planning Other Recommendations and Next Treatment continue exercises and Focus progress to walking Recommendations To Nursing Amount of Assist Needed 1 Person Assist Discharge Recommendations PT Discharge Recommendations Home with Assistance Home Health
[2017-12-02 15:17] VITALS: BP 102/61; PULSE 101; RESP 18; TEMP 36.9; O2SAT 94
[2017-12-02] MEDS: DEXTROAMPHETAMINE AMPHETAMINE 10 EACH PO (16:56)
--- NOTE | 2017-12-02 17:41 | PC.NURSE ---
Addendum entered by Mariel Benavidez R.N. 12/02/17 21:53: Pt had uneventful evening. Med @ 2000 w/ oxycodone w/good relief. Dsg intact. Stable post op course. Call light w/in reach. Continue w/plan of care. Original Note: Pt awake, states discomfort a 10/18. Med at 1645 w/oxycodone w/good relief. Aquacell dsg to left knee CDI. Assisted to BR w/o incidence. HL RAC intact/patent. Sitting in chair for dinner. Call light w/in reach.
[2017-12-02] MEDS: AMITRIPTYLINE 25 MG TABLET 50 MG PO (20:33)
[2017-12-02] MEDS: MONTELUKAST 10 MG TABLET PO (20:35)
[2017-12-02] MEDS: LORazepam 1 MG TABLET PO (20:57)
[2017-12-02 23:35] VITALS: BP 131/47; PULSE 93; RESP 16; TEMP 36.8; O2SAT 97
[2017-12-03] MEDS: OXYCODONE IR 5 MG TABLET 10 MG PO (02:20)
[2017-12-03 05:33] VITALS: BP 102/65; PULSE 88; RESP 16; TEMP 36.9; O2SAT 95
[2017-12-03] MEDS: OXYCODONE IR 5 MG TABLET 15 MG PO ×2 (05:59→10:01)
[2017-12-03] MEDS: hydrOXYzine pamoate 25 MG CAPSULE PO ×2 (06:15→11:37)
[2017-12-03 07:30] VITALS: BP 103/52; PULSE 97; RESP 18; TEMP 36.9; O2SAT 99
[2017-12-03] MEDS: IBUPROFEN 400 MG TABLET 800 MG PO (08:18)
[2017-12-03] MEDS: DOCUSATE 100 MG CAPSULE PO (08:18)
[2017-12-03] MEDS: BUSPIRONE 15 MG TABLET 30 MG PO (08:18)
[2017-12-03] MEDS: lamoTRIgine 25 MG CHEW TABLET 75 MG PO (08:18)
[2017-12-03] MEDS: POLYETHYLENE GLYCOL 3350 17 GM POWD.PACK PO (08:19)
[2017-12-03] MEDS: lamoTRIgine 100 MG TABLET 200 MG PO (08:19)
[2017-12-03] MEDS: ESTRADIOL 0.5 MG TABLET PO (08:20)
[2017-12-03] MEDS: ASPIRIN EC 81 MG TABLET PO (08:20)
[2017-12-03] MEDS: DEXTROAMPHETAMINE AMPHETAMINE 10 MG 20 EACH PO (08:20)
[2017-12-03] MEDS: ACETAMINOPHEN 325 MG TABLET 975 MG PO (08:21)
--- NOTE | 2017-12-03 10:25 | OT.IP.EVAL ---
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, initial encounter (11/30/17) Surgery Performed Operation Date: 11/30/17 07:45 Actual Procedures p Total Knee Arthroplasty Revision(Left) - Vipul Bullock MD Past Medical History (Last Updated 11/20/17 @ 12:22 by Brittanie Montano RN) ADHD (Acute) Anxiety (Acute) Bipolar 1 disorder (Acute) Chronic gastritis (Acute) Depression (Acute) Easy bruisability (Acute) GERD (gastroesophageal reflux disease) (Acute) Generalized headaches (Acute) Left wrist fracture (Acute) Neck pain (Acute) Neurology follow-up encounter (Acute) PTSD (post-traumatic stress disorder) (Acute) Peripheral edema (Acute) Rhinosinusitis (Acute) Seasonal allergies (Acute) Seizure-like activity (Acute) Skin cancer (Acute) Surgical History (Last Updated 11/18/17 @ 11:00 by Brittanie Montano RN) History of arthroplasty of left knee (Acute) History of cholecystectomy (Acute) History of gastric bypass (Acute) History of total abdominal hysterectomy and bilateral salpingo-oophorectomy (Acute) Hx of appendectomy (Acute) Hx of section (Acute) Occupational Therapy Inpatient Evaluation/Re-Eval M1 PT/OT-IP Prior Functional Status Start: 12/03/17 16:25 Freq: NEEDED Status: Active Protocol: Document 12/03/17 10:25 MIKA (Rec: 12/03/17 16:44 PJOskar [id number]) Medical Review Prior Functional Status Medical History Reviewed Yes Diet/Fluid Consistency Regular Communication WNL Mobility and Gait ind to mod ind w/ walker Activities of Daily Living and IADL's Pt states she was independent with self care except occasionally assisted with socks due to L knee pain. 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 Pt's 37 yr old daughter, who has brain injury , lives with them, as well as 9 yr old granddaughter. Daughter recently got approved for [facility] caregiver, and receives HH therapy services.. Social History Household Members spouse children Living Arrangements House Number of Floors (Floors) One Floor Number of Stairs To Enter/Railing? ramp to enter Home Environment Standard Height Toilet Tub/Shower Home Equipment Front Wheel Walker Raised Toilet Seat w/Armrests Tub Transfer Instrument Person Held Shower Leg Road Maker Long Handled Sponge Long Handled Shoe Horn Referral Manager Sock Aid Employment Status Retired Additional Social History Comment is retired and can provide 24 hr assist. Provided chip loft worker, sock aid, long bath sponge and shoe horn at pt request. M2 OT-IP Current Condition Start: 12/03/17 16:25 Freq: Status: Active Protocol: Document 12/03/17 10:25 PJM (Rec: 12/03/17 16:44 PJM [id number]) Occupational Therapy Current Condition Current Condition Evaluation Date 12/03/17 Treatment Diagnosis decreased self care and functional mobility after L TKA revision Diagnosis Onset Date 11/30/17 Weight Bearing Status Weight Bearing Status Weight Bear as Tolerated M3 OT- IP Subjective and Pain Start: 12/03/17 16:25 Freq: Status: Active Protocol: Document 12/03/17 10:25 PJM (Rec: 12/03/17 16:44 PJM NR) OT- Subjective Occupational Therapy Visit Type Type Initial Evaluation Visit Start Time 09:15 Visit Stop Time 10:25 Total Visit Minutes 70 Notes Pt performs very slowly; especially with bed mobility due to pain level. here for education this session. Occupational Therapy Visit Comments Patient Comments Do I get to go home today? Patient/Caregiver Goals to go home, be able to assist her daughter PRN OT Pain Assessment Pain When Pain Assessed During Mobility Pain Present Pain Present Pain Reported Location Left Knee Intensity 7 Scale Used Numeric (1 - 10) Description Aching Sharp Pain Behaviors Facial Grimacing Guarding Management Techniques Distraction Re-positioning Timing of Activity with Medications M4 OT- IP ADL's Start: 12/03/17 16:25 Freq: Status: Active Protocol: Document 12/03/17 10:25 PJM (Rec: 12/03/17 16:44 PJM [id number]) OT [id number]-[id number]-Hfgidck General Evaluation Self-Feeding Ability Independent OT ADL-Grooming General Evaluation Grooming Ability Independent Areas Needing Assistance Combing/Brushing Hair Face Washing Comments OT Grooming Comments standing at sink with FWW OT ADL-Oral Care General Eval Oral Care Ability Independent Areas of Assistance Managing Dentures Comments Oral Care Comments standing at sink with FWW OT ADL-Dressing General Eval Upper Body Dressing Ability Independent Lower Body Dressing Ability Minimal Assistance Areas Needing Assistance Retrieving/Set-up of Clothing Pants/Shorts Socks Shoes Assistive Devices Dressing Assistive Devices Long Handled Shoe Horn Referral Manager Sock Aid Comments OT Dressing Comments Pt educated re: use of chip loft worker , sock aid, long shoe horn and needs SBA to don pants, socks and min assist to don L shoe due to tight fit. Pt using adaptive equipt with min cues. OT ADL-Toileting General Evaluation Toileting Ability Independent Comments OT Toileting Comments by pt report OT ADL-Bathing Bathing Type Bathing Type Shower General Evaluation Bathing Ability Standby Assistance Areas Needing Assistance Retrieving/Setting Up Items Devices Bathing Equipment Long Handled Sponge or International Coordinator Held Shower Sprayer Shower Chair with Arms Comments OT Bathing Comments Pt SBA after set up for shower primarily sitting, but standing for star care. M5 OT- IP IADL's Start: 12/03/17 16:25 Freq: Status: Active Protocol: Document 12/03/17 10:25 PJM (Rec: 12/03/17 16:44 PJ NR) OT-Instrumental Activities of Daily Living Deficits IADL Deficits Identified Deficits Home Safety Awareness Awareness of Need for Assistance at Home Good Awareness Ability to Problem Solve Emergency Able to Problem Solve Situations Medication Management Medication Management Caregiver Provides Supervision Money Management Money Management No Deficits Identified Meal Preparation Meal Preparation Caregiver Provides Assist Meal Preparation Comments to assist until pt able Seismograph Observer Seismograph Observer Caregiver Provides Assist Seismograph Observer Comments to assist until pt able Driving Driving Caregiver Provides Assist Driving Comments to assist until pt able M6 OT- IP Functional Cognition Start: 12/03/17 16:25 Freq: Status: Active Protocol: Document 12/03/17 10:25 PJM (Rec: 12/03/17 16:44 PJ [id number]) Cognitive Factors Limiting Selfcare Function Cognitive Ability Level of Alertness Alert Patient Orientation Name Age Birthday Month Date Year Day of Week Place Situation Attention Span Ability Capable of Focused Attention Ability to Follow Commands Able to Follow One Step Commands Problem Solving Ability Needs Assist to Identify Solutions Cognitive Comments Cognitive Assessment Comments Pt mildly distractible; normally takes ADHD medication . OT- Vision and Hearing OT- Hearing Assessment OT- Hearing Assessment WFL OT- Vision Assessment Visual Acuity WFL Vision Assessment Comments Pt denies any recent changes. M7 OT- IP Mobility and Balance Start: 12/03/17 16:25 Freq: Status: Active Protocol: Document 12/03/17 10:25 PJM (Rec: 12/03/17 16:44 PJ [id number]) OT- Bed Mobility Assessment Rolling Level of Assistance Standby Assistance Supine to Sit Supine to Sit Assist Minimal Assistance Sit to Supine Sit to Supine Assist Standby Assistance Scooting Scooting to Edge of Bed Minimal Assistance OT-Transfer Assessment Sit to and From Stand Sit to and from Stand Contact Guard Assistance Transfers Transfer Ability Contact Guard Assistance Technique Transfer Destination Car Chair Shower Stall Transfer Technique Stand Step Pivot Devices Transfer Assistive Devices Gait Belt Front Wheeled Walker Comments Mobility Comments Pt has power bed at home. Pt performs bed mobility very slowly and uses gait belt as leg bus starter. able to verbally cue pt and assist her appropriately with bed mobility. Provided education re: tub bench and car transfers at home and pt/ verbalize understanding. OT- Gait Assessment Gait Gait Assistance Required: Standby Assistance Distance (Feet) (feet) 25 Assistive Devices Assistive Device Gait Belt Front Wheeled Walker OT- Balance Assessment Sitting Balance and Reactions Static Sitting Balance Ability Good Dynamic Sitting Balance Ability Good Standing Balance and Reactions Static Standing Balance Ability Good Dynamic Standing Balance Ability Good M8 OT- IP Objective Assessments Start: 12/03/17 16:25 Freq: Status: Active Protocol: Document 12/03/17 10:25 PJM (Rec: 12/03/17 16:44 PJ [id number]) OT Gross Range of Motion Upper Extremity Range of Motion Assessment Within Functional Limits OT Strength Upper Extremity Strength Assessment Within Functional Limits OT- Coordination Assessment Comments Coordination Comments BUE WFL OT-Muscle Tone Assessment Muscle Tone WNL Yes OT Sensation Assessment Comments Summary Comments BUE WNL Edema Edema Absent M9 OT- IP Assessment and Plan Start: 12/03/17 16:25 Freq: Status: Active Protocol: Document 12/03/17 10:25 PJM (Rec: 12/03/17 16:44 [facility] [id number]) OT Summary Assessment and Plan Potential Rehabilitation Potential Good Analytic Complexity at Evaluation Low Summary OT Impairments Pain Range of Motion Functional Mobility Dressing Bathing Shower Transfers Assessment Summary Low complexity OT assessment completed with emphasis on self care skills after recent TKA. All OT education completed with pt/ today. Supportive able to assist pt appropriately and will provide 24 hr assist at d/c. Good effort and participation from pt today. Pt admits to high anxiety level and reports much improved self confidence in self care tasks after today's session. No further OT services needed. Treatment Plan Other Treatment Recommendations and Next d/c OT Treatment Focus Discharge Recommendations OT Discharge Recommendations Home with Assistance Home Equipment Needs Pt has all necessary equipt. Referral Manager, sock aid, long shoe horn and bath sponge provided.
[2017-12-03] MEDS: DEXTROAMPHETAMINE AMPHETAMINE 10 EACH PO (11:37)
--- NOTE | 2017-12-03 11:56 | PT.IPTN ---
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, initial encounter (11/30/17) Surgery Performed Operation Date: 11/30/17 07:45 Actual Procedures p Total Knee Arthroplasty Revision(Left) - Vipul Bullock MD Physical Therapy Treatment Note M2 PT-IP Current Condition Start: 11/30/17 14:26 Freq: NEEDED Status: Active Protocol: Document 11/30/17 15:40 RS (Rec: 12/01/17 07:54 RS [id number]) Physical Therapy Current Condition Current Condition Evaluation Date 11/30/17 Treatment Diagnosis L TKA 2nd revision Weight Bearing Status Weight Bearing Status Weight Bear as Tolerated M3 PT-IP Subjective Start: 11/30/17 14:26 Freq: NEEDED Status: Active Protocol: Document 12/03/17 11:56 GGD (Rec: 12/03/17 11:56 GGD [id number]) Subjective Physical Therapy Visit Type Type Patient Refusal Notes Pt states she is ready to D/C and would like to rest. Focus progress to walking Recommendations To Nursing Amount of Assist Needed 1 Person Assist Discharge Recommendations PT Discharge Recommendations Home with Assistance Home Health
--- NOTE | 2017-12-03 11:57 | P.DS_ITS ---
History of Present Illness Date Patient Seen: 12/03/17 Time Patient Seen: 11:54 Chief complaint: [id number] Narrative: See preoperative history and physical for history of present illness. Discharge Providers Date of admission: 11/30/17 05:47 Consults: 11/30/17 11:10 Consult to Discharge Planning Routine Comment: Consult to Physical Therapy Evaluate & Treat Comment: Physician Instructions: postop TKA protocol 12/01/17 10:25 Consult to Home Health Routine Comment: s/p left knee revision Reason For Exam: Home Health for PT/OT 12/02/17 13:24 Consult to Occupational Therapy Evaluate & Treat Comment: Physician Instructions: Evaluate and treat Discharge provider: Keanu Woodard PA-C Summary Discharge Diagnosis: Status post revision left total knee arthroplasty femoral component Hospital Course: Patient brought to hospital on 11/30/2017 for above noted surgery. She remained stable postoperatively. Progressed slowly with physical therapy and pain management. Ready for discharge to home on postop day 3. Status at Discharge Cognitive/behavioral status at discharge: Alert, oriented no acute distress. Functional status at discharge: uses cane/walker Overall status at discharge: patient is progressing back to baseline Time Spent with Patient Less than 30 minutes Exam Vital Signs (past 8 hours): - 12/03/17 05:33 12/03/17 07:30 Temperature 98.5 F 98.5 F Pulse Rate 88 97 H Respiratory Rate 16 18 Blood Pressure 102/65 103/52 L Pulse Oximetry 95 99 Oxygen Delivery Method Room Air Oxygen Flow Rate 0 Narrative Exam Narrative: Left knee incision healing well and Aquacel dressing in place. No calf pain or swelling. Pulses symmetrical. Objective Labs Result Diagrams: 12/01/17 05:30 Discharge Plan Discharge Plan Patient Disposition: Home, Self-Care Transfer to: [facility] Discharge Med Rec/Prescriptions Prescriptions: New oxycodone 5 mg tablet 15 mg PO Q4-6H PRN (Reason: pain) Qty: 60 RF: 0 hydroxyzine pamoate 25 mg capsule 25 mg PO Q6-8H PRN (Reason: muscle spasm) Qty: 30 RF: 0 Continue lamotrigine [Lamictal] 200 mg Tablet 275 mg PO QAM RF: 0 ibuprofen 800 mg Tablet 800 mg PO Q12H PRN (Reason: pain) RF: 0 aspirin 81 mg Tablet,Delayed Release (Dr/Ec) 81 mg PO DAILY RF: 0 amitriptyline 25 mg Tablet 50 mg PO BEDTIME RF: 0 lorazepam 0.5 mg Tablet 1 mg PO BEDTIME RF: 0 montelukast 10 mg Tablet 10 mg PO BEDTIME RF: 0 estradiol 0.5 mg Tablet 0.5 mg PO QAM RF: 0 buspirone 15 mg Tablet 2 tab PO BID RF: 0 dextroamphetamine-amphetamine [Adderall XR] 10 mg Capsule,Extended Release 24hr 20 mg PO QAM RF: 0 dextroamphetamine-amphetamine [Adderall] 5 mg Tablet 10 mg PO BID RF: 0 Discontinued oxycodone 10 mg Tablet 10 mg PO Q4-6H PRN (Reason: Pain) RF: 0 Follow up/Referrals: Vipul Bullock MD [Physician] - 1 Day Provider Discharge Instructions Diet: Diet as Tolerated Activity: Ambulate as tolerated. Work on range of motion of knee. Wound Care Dressing: Keep dressing on until postop visit. Visit Report/Discharge Packet Instructions: DI for Knee Replacement Discharge Data Attending Provider: Vipul Bullock Admit Date/Time: 11/30/17 05:47 Quality VTE Deep Vein Thrombosis/Pulmonary Embolism Present on Admission: No
--- NOTE | 2017-12-03 12:46 | PC.NURSE ---
Pt ready for discharge home with Spouse. Meds in Pharmacy returned to Pt. Reviewed d/c orders, discharge meds, time of last dose, follow up, and signs of infection to call MD. Pt denies further questions and was taken out via w/c by SERVICE CREW SUPERVISOR to POV with all belongings.
--- NOTE | 2017-12-03 15:36 | CM.DPNOTE ---
DC Note: Pt being DC home today. Met w/pt yesterday to confirm plan. She was appreciative for [facility]. Pt denied any other DC needs. Confirmed [facility], pt was being DC home, f/u w/in 48 hrs was confirmed. Pt left the floor before this PLATING TANK OPERATOR APPRENTICE could update pt, but able to speak w/her once she got home today. Pt appreciative. PILLO Coles
== END 2017-12-03 12:48 | disposition home health service (06) | DRG 468 ==
PROVIDERS: Admitting Provider Orthopaedic Surgery; Visit Provider Orthopaedic Surgery
PROC: 0SPU0JZ Removal of Synthetic Substitute from Left Knee Joint, Femoral Surface, Open Approach (ICD-10-PCS; principal; 2017-11-30 07:45)
DX: T84.033A Mechanical loosening of internal left knee prosthetic joint, initial encounter (principal); G47.30 Sleep apnea, unspecified; F32.9 Major depressive disorder, single episode, unspecified; Z96.652 Presence of left artificial knee joint; K21.9 Gastro-esophageal reflux disease without esophagitis; F90.9 Attention-deficit hyperactivity disorder, unspecified type; F41.9 Anxiety disorder, unspecified; D64.9 Anemia, unspecified
CPT/HCPCS: 36415; 36592; 64450; 73560; 85014; 85018; 87070; 87075; 87205; 97110; 97116; 97161; 97165; 97530; 97535; C1776; C9290; J2175; J2250; J2704; J3010; J3370